=== PATIENT | female | born 1950 | race Hispanic/Latino ===

== ENCOUNTER 2024-09-04 17:40 | Emergency (ER) | payer OTHER, SELFPAY ==
[2024-09-04 17:49] VITALS: BP 170/80
[2024-09-04 18:26] LABS: Hemoglobin 13.4 g/dL (12.0-16.0); Mean Corp Hgb Conc. 33.5 g/dL (33.0-37.0); Mean Corpuscular Hgb 30.6 pg (27.0-31.0); Mean Corpuscular Volume 91.3 fL (81.0-99.0); Mean Platelet Volume 10.6 fL (7.4-10.4); Platelet Count 218 10^3/uL (130-400); Red Blood Cell Count 4.38 10^6/uL (4.20-5.40); Red Cell Dist. Width 13.6 % (11.5-14.5); White Blood Cell Count 6.3 10^3/uL (4.8-10.8)
[2024-09-04 18:39] LABS: ALT (SGPT) 15 U/L (0-35); AST (SGOT) 32 U/L (14-36); Albumin 4.4 g/dl (3.5-5.0); Alkaline Phosphatase 82 U/L (38-126); Blood Urea Nitrogen 28 mg/dl (7-17); Calcium 9.2 mg/dl (8.4-10.2); Carbon Dioxide 30 mmol/L (22-30); Chloride 100 mmol/L (98-107); Glucose 97 mg/dl (70-99); Potassium 4.3 mmol/L (3.5-5.1); Sodium 138 mmol/L (135-145); Total Bilirubin 0.3 mg/dl (0.2-1.3); Total Protein 7.7 g/dl (6.3-8.2); eGFR 59.49
[2024-09-04 18:48] LABS: % Basophils 0.5 % (0-2); % Eosinophils 0.5 % (0-6); % Immature Granulocytes 0.2 % (0-0.5); % Lymphocytes 57.8 % (20.5-51.1); % Monocytes 8.9 % (1.7-9.3); % Neutrophils 32.1 % (42.2-75.2); Absolute Lymphocytes 3.7 10^3/uL (1.2-3.4); Absolute Monocytes 0.6 10^3/uL (0.1-0.6); Nucleated Red Blood Cells % 0 %; Troponin I < 0.012 ng/ml
[2024-09-04 20:16] VITALS: BP 158/65
[2024-09-04 20:52] VITALS: BMI 26.1
[2024-09-04 21:00] VITALS: BP 147/62
[2024-09-04 21:30] LABS: D-Dimer 0.45 ug/mlFEU (0.00-0.50)
--- NOTE | 2024-09-04 21:43 | ED.GENMED ---
History of Present Illness
<Ashwini Thakur PA-C - Last Filed: 09/05/24 00:41>
General
Chief Complaint: Chest Pain
Source: patient and family (Patient's daughter at bedside)
Exam Limitations: none
Time Seen by Provider: 09/04/24 20:12
Nursing documentation reviewed up to this point in time: agreed with
History of Present Illness
History of Present Illness:
Patient is a 74-year-old female with history hypertension, GERD presenting to the emergency department with daughter for evaluation of chest pain. Patient's daughter is translating for patient. Patient reports intermittent discomfort in her left
chest over the past month although becoming more constant and worse this week. There is some radiation of pain into her arms and upper back. Patient denies any true exertional or pleuritic component to pain. No shortness of breath. No
diaphoresis, nausea/vomiting, numbness/tingling in extremities. No tearing back pain. Patient denies any fever, chills, cough, or other URI symptoms
Patient's daughter did notice a mild tremor in her left arm today which is new.
Patient has recently been following with GI for suspected GERD.
No lower extremity edema or pain. No recent travel or recent surgeries. No history of personal or family history of blood clots or clotting disorders
Review of Systems
<Ashwini Thakur PA-C - Last Filed: 09/05/24 00:41>
Review of Systems
Allergies reviewed?: Yes
All Other Systems: ROS reviewed and negative except as documented in HPI and ROS
Phy Exam
<Ashwini Thakur PA-C - Last Filed: 09/05/24 00:41>
Physical Exam
Physical Exam:
Vitals: Patient's vital signs are stable. Afebrile
General: Patient is well appearing, no acute distress. Nontoxic appearing
Skin: Warm and dry, no rashes or lesions
Head: Normocephalic, atraumatic
Eyes: Sclera nonicteric. EOMs intact. No nystagmus.
Throat: Protecting airway
Neck: Normal ROM, no cervical spine tenderness, no meningismus
Cardiac: Regular rate and rhythm, no murmurs. No reproducible chest wall tenderness. Palpable and equal distal pulse in bilateral upper and lower extremities
Pulm: Normal respiratory effort, no wheezes, rales, rhonchi heard on exam. O2 saturation 99 on room air
Abdomen: Abdomen soft. No abdominal tenderness.
Extremities: No evidence of cyanosis or edema. Bilateral upper and lower extremities atraumatic and nontender with full range of motion
Neuro: AAOx3. CN II-XII intact. No focal neurologic deficits. Sensation fully intact. No tremor on exam.
Psychiatric: Normal affect.
Scores
<Ashwini Thakur PA-C - Last Filed: 09/05/24 00:41>
Heart Score for Chest Pain Patients
STEMI patient?: No
History: Slightly or Non-Suspicious
ECG: Normal
Age: >/= 65 years
Risk Factors: 1 or 2 Risk Factors
Troponin: </= Normal Limit
Heart Score for Chest Pain Patients: 3
Heart Score Risk: 2.5% MACE over next 6 weeks
Course
<Ashwini Thakur PA-C - Last Filed: 09/05/24 00:41>
Orders/Labs/Results
Orders:
Orders
09/04/24 17:41
EKG [Electrocardiogram (*1)] Urgent
Reason for Study: Chest Pain
EKG- Treatment ONCE
09/04/24 18:08
CBC/With Diff [Complete Blood Count/With Diff] Urgent
Comprehensive Metabolic Panel Urgent
Troponin I Urgent
09/04/24 21:00
Electrocardiogram (*1) Urgent
Reason for Study: Chest Pain
EKG- Treatment ONCE
09/04/24 21:10
D-Dimer Urgent
Troponin I Urgent
09/04/24 21:57
CR Chest - 2 Views Urgent
Comment:
Reason For Exam: left sided chest pain
Abnormal Lab Results
09/04/24
18:08
MPV 10.6 H fL
(7.4-10.4)
Absolute Lymphs (auto) 3.7 H 10^3/uL
(1.2-3.4)
Neutrophils % 32.1 L %
(42.2-75.2)
Lymphocytes % 57.8 H %
(20.5-51.1)
BUN 28 H mg/dl
(7-17)
09/04/24 18:08
09/04/24 18:08
Vital Signs
Initial and Last Documented VS:
Initial Vital Signs
Temp Pulse Resp BP Pulse Ox
98.3 F 58 20 170/80 99
09/04/24 17:49 09/04/24 17:49 09/04/24 17:49 09/04/24 17:49 09/04/24 17:49
Last Documented Vital Signs
Temp Pulse Resp BP Pulse Ox
98.3 F 57 13 132/64 97
09/04/24 17:49 09/04/24 23:45 09/04/24 23:45 09/04/24 23:05 09/05/24 00:01
<Mc Cleveland, DO - Last Filed: 09/04/24 23:24>
Orders/Labs/Results
Orders:
Orders
09/04/24 17:41
EKG [Electrocardiogram (*1)] Urgent
Reason for Study: Chest Pain
EKG- Treatment ONCE
09/04/24 18:08
CBC/With Diff [Complete Blood Count/With Diff] Urgent
Comprehensive Metabolic Panel Urgent
Troponin I Urgent
09/04/24 21:00
Electrocardiogram (*1) Urgent
Reason for Study: Chest Pain
EKG- Treatment ONCE
09/04/24 21:10
D-Dimer Urgent
Troponin I Urgent
09/04/24 21:57
CR Chest - 2 Views Urgent
Comment:
Reason For Exam: left sided chest pain
Abnormal Lab Results
09/04/24
18:08
MPV 10.6 H fL
(7.4-10.4)
Absolute Lymphs (auto) 3.7 H 10^3/uL
(1.2-3.4)
Neutrophils % 32.1 L %
(42.2-75.2)
Lymphocytes % 57.8 H %
(20.5-51.1)
BUN 28 H mg/dl
(7-17)
09/04/24 18:08
09/04/24 18:08
Vital Signs
Initial and Last Documented VS:
Initial Vital Signs
Temp Pulse Resp BP Pulse Ox
98.3 F 58 20 170/80 99
09/04/24 17:49 09/04/24 17:49 09/04/24 17:49 09/04/24 17:49 09/04/24 17:49
Last Documented Vital Signs
Temp Pulse Resp BP Pulse Ox
98.3 F 57 13 132/64 97
09/04/24 17:49 09/04/24 23:45 09/04/24 23:45 09/04/24 23:05 09/05/24 00:01
<Ashwini Thakur PA-C - Last Filed: 09/05/24 00:41>
MDM/Problems Addressed
Differential Diagnosis Includes:
Not limited to: Pleurisy, classic chest, GERD, pneumonia, ACS, PE, etc.
MDM/Problems Addressed:
74-year-old female with constant left-sided chest pain with radiation to arms, back for the past week. No true exertional or pleuritic component. No nausea, diaphoresis, lightheadedness, shortness of breath. No lower extremity edema. No PE risk
factors. Mildly hypertensive, otherwise stable vitals signs. Patient afebrile. Physical exam as above. Patient very well-appearing, no apparent distress. Heart regular rate and rhythm. Lungs clear bilaterally. No lower extremity edema. Basic
labs initiated in triage without any clinically significant abnormalities. Initial troponin undetectable. EKG shows sinus bradycardia without acute ischemic changes. Given symptoms been ongoing for the past week and somewhat intermittent over the
past month�low suspicion for acute cardiac emergency. Will repeat troponin and check D-dimer. Will closely monitor and reassess
Update: Repeat troponin undetectable. Fortunately D-dimer is negative. A chest x-ray was obtained without any acute abnormalities. Into reassess patient at bedside who remains very well-appearing, no apparent distress. Ultimately patient with
atypical chest pain over the past week/month. Low suspicion for acute cardio/pulmonary emergent process. Possibly related to GERD/muscle strain. Feel patient stable for discharge with close primary care follow-up. Return precautions discussed.
Case discussed with attending physician
Chronic conditions affecting care:
Hypertension, GERD
Acute Exacerbation and/or Progression of Chronic Illness:
Acutely hypertensive
<Ashwini Thakur PA-C - Last Filed: 09/05/24 00:41>
*Radiology
Radiology exam reviewed: preliminary read by ED provider (Chest x-ray reviewed by mt-no acute abnormalities) and radiology read reviewed
*Pulse Oximetry
Patient hypoxic: no
*EKG
Interpreted by ED Provider?: Yes
EKG Intrepretation Date: 09/04/24
Interpretation: normal
Comparison EKG: no comparison EKG present
Heart Rate: 58
Rate: bradycardiac
Rhythm: sinus and sinus arrhythmia
[place]: normal axis
Interval: normal QT interval
QRS Pattern: normal QRS
Ischemia: no ischemia
*Vending Machine Repairer Interpretation
Rate: normal
Interpretation: normal
Heart Rate: 56
Rhythm: sinus
*Critical Care Note
Total Time (30-74mins, 75-104mins- exclusive of procedures): Not Applicable
<Ashwini Thakur PA-C - Last Filed: 09/05/24 00:41>
Patient Management
Escalation/DeEscalation of care consider admission/obs:
Admit not indicated
ED Attending Note
<Ashwini Thakur PA-C - Last Filed: 09/05/24 00:41>
-
Portions of this chart may have been created with voice recognition software.� Occasional wrong word or��sound alike� substitutions may have occurred due to the inherent limitations of voice recognition software.
<Mc Cleveland, - Last Filed: 09/04/24 23:24>
ED Attending Note
I performed the substantive portion of visit, reviewed & personally made and approve the management plan that is documented in note by myself or RAÚL.: Yes
Discharge Plan
Departure
Patient Disposition: Home (Routine Discharge)
Date of Disposition: 09/04/24
Time of Disposition: 23:57
Patient with high blood pressure during this ER visit?: Yes
Condition: Good
Covid-19: Not Applicable
Discharge Problem:
Chest pain
Instructions: Chest pain - Discharge instructions, BLOOD PRESSURE
Referrals:
Arnoldo Lujan MD [Family Provider] -
Saul Gallagher MD [Active] - Call in 1-3 days for appt
Activity Restrictions/Additional Instructions:
Return to the emergency department with any worsening chest pain, shortness of breath/difficulty breathing, severe back pain, lightheadedness/dizziness, worsening in current symptoms, or any other concern
-As discussed�your chest x-ray showed no acute abnormalities today. Your lab work did not show any significant abnormalities.
-You can continue to take Motrin/Tylenol as needed for discomfort.
-Follow-up with cardiology for further evaluation/management as needed. A ob/gyn contact information has been provided for you above.
-Continue to follow with GI for GERD.
Monitor your symptoms closely return to the emergency department with any acute worsening/new symptoms or any other concerns
Interventions
Interventions:
*Risk Screen - Suicide Last Done: 09/05/24 00:10
*General Assessment Last Done: 09/04/24 17:49
*Neglect/Abuse Screening Last Done: 09/04/24 20:53
ED- Fall Risk Assessment Last Done: 09/04/24 20:54
*ED COVID-19 Vaccine History Last Done: 09/04/24 20:53
*Nursing Disposition Last Done: 09/05/24 00:10
ED- Cardiac Assessment Last Done: 09/04/24 20:54
Discharge Date and Time
Discharge Date/Time: 09/05/24 00:12
Print Language: CHADIAN
[2024-09-04 22:00] VITALS: BP 140/56
[2024-09-04 22:05] LABS: Troponin I < 0.012 ng/ml
[2024-09-04 23:05] VITALS: BP 132/64
== END 2024-09-05 00:12 | disposition home or self-care (01) ==
LOC: EMR 17:40
PROVIDERS: Physician Assistant; Student in an Organized Health Care Education/Training Program; EMERGENCY PHYSICIAN Emergency Medicine; FAMILY PHYSICIAN Internal Medicine
DX: R07.89 Other chest pain (principal); I10 Essential (primary) hypertension; K21.9 Gastro-esophageal reflux disease without esophagitis
CPT/HCPCS: 99283; 71046; 80053; 84484; 85025; 85379; 93005

== ENCOUNTER 2025-05-15 14:45 | Emergency (ER) | payer OTHER, SELFPAY ==
[2025-05-15 14:58] VITALS: BP 172/66
[2025-05-15 15:16] LABS: Hematocrit 37.6 % (37.0-47.0); Hemoglobin 12.6 g/dL (12.0-16.0); Mean Corp Hgb Conc. 33.5 g/dL (33.0-37.0); Mean Corpuscular Volume 90.6 fL (81.0-99.0); Nucleated Red Blood Cells % 0 %; Platelet Count 230 10^3/uL (130-400); Red Cell Dist. Width 13.2 % (11.5-14.5)
[2025-05-15 15:50] LABS: ALT (SGPT) 19 U/L (0-35); AST (SGOT) 29 U/L (14-36); Albumin 4.1 g/dl (3.5-5.0); Alkaline Phosphatase 79 U/L (38-126); Blood Urea Nitrogen 29 mg/dl (7-17); Calcium 9.3 mg/dl (8.4-10.2); Carbon Dioxide 32 mmol/L (22-30); Chloride 103 mmol/L (98-107); Glucose 103 mg/dl (70-99); Potassium 4.6 mmol/L (3.5-5.1); Sodium 140 mmol/L (135-145); Total Protein 7.5 g/dl (6.3-8.2); eGFR 53.06
--- NOTE | 2025-05-15 17:19 | ED.GENMED ---
History of Present Illness
General
Chief Complaint: Musculo-Skeletal Complaint
Source: patient and family
Exam Limitations: none
Time Seen by Provider: 05/15/25 16:57
Nursing documentation reviewed up to this point in time: agreed with except (Triage note mentions urinary symptoms but this was entered in error apparently)
History of Present Illness
History of Present Illness:
74-year-old female with a past medical history of hypertension, hyperlipidemia, mild dementia, seizures who presents to the emergency room with her daughter for evaluation of pain in the feet. Patient has reportedly had burning pain on the soles of
the feet bilaterally for about 6 months. She has been seen by her primary care physician for this issue, has been on gabapentin but does not feel that this is helping. Today the burning pain was so severe that she was having trouble walking in the
park with her daughter and ultimately they brought her to the ER to be evaluated. She denies any shooting pains down the legs, pain seems to be localized to the soles of the feet. She does have some chronic back pain after a fall few months ago
but no acute changes there. She has not had any weakness in the legs. No numbness or weakness in the arms. Triage note mentions urinary symptoms�this was apparently entered in error, patient has not had any urinary issues
Review of Systems
Review of Systems
All Other Systems: ROS reviewed and negative except as documented in HPI and ROS
Constitutional: Denies fever
Respiratory: Denies trouble breathing
Cardiac: Denies chest pain
ABD/GI: Denies abdominal pain
: Denies dysuria, frequency or flank pain
Musculoskeletal: Reports back pain (Chronic and unchanged) and other (Bilateral foot pain); Denies neck pain
Neurological: Denies headache, weakness or numbness
Phy Exam
Physical Exam
Physical Exam:
General: Awake, alert, oriented x3; no acute distress
Head: Normocephalic, atraumatic
Eyes: Conjunctiva normal, EOMI, pupils equal round and reactive to light bilaterally
Throat: Airway intact, handling secretions
Neck: Trachea midline
Lungs: Breathing comfortably no distress
Heart: Regular rate
Abd: Soft, non distended, nontender
Back: No midline thoracic or lumbar tenderness, mild tenderness left paraspinal musculature
Neuro: Cranial nerves intact, speech fluid, motor intact proximally and distally in the upper and lower extremities; sensory exam is objectively intact in the legs however she does have some subjective diminished sensation on the soles of the feet
Skin: No rash noted
Extremities: No edema in extremities, equal pulses in all extremities�she has palpable popliteal, DP and PT pulses in the legs bilaterally and she has brisk capillary refill
Scores
Heart Failure Risk
Heart Failure Risk Score: Not Applicable
Heart Score for Chest Pain Patients
STEMI patient?: Not applicable
Withdrawal Assessment of Alcohol
Withdrawal Assessment Completed?: Not applicable
Course
Orders/Labs/Results
Orders:
Orders
05/15/25 15:10
CBC/With Diff [Complete Blood Count/With Diff] Urgent
CMP [Comprehensive Metabolic Panel] Urgent
05/15/25 17:14
B12 [Vitamin B12] Urgent
Folate Urgent
TSH Reflex To Free T4 Urgent
Vitamin D, 25-OH Urgent
05/15/25 17:20
Urinalysis Reflex To Culture Urgent
Abnormal Lab Results
05/15/25
15:10
RBC 4.15 L 10^6/uL
(4.20-5.40)
MPV 10.6 H fL
(7.4-10.4)
Carbon Dioxide 32 H mmol/L
(22-30)
BUN 29 H mg/dl
(7-17)
Creatinine 1.1 H mg/dL
(0.6-1.0)
Glucose 103 H mg/dl
(70-99)
05/15/25 15:10
05/15/25 15:10
Vital Signs
Initial and Last Documented VS:
Initial Vital Signs
Temp Pulse Resp BP Pulse Ox
36.6 C 57 14 172/66 100
05/15/25 14:58 05/15/25 14:58 05/15/25 14:58 05/15/25 14:58 05/15/25 14:58
Last Documented Vital Signs
Temp Pulse Resp BP Pulse Ox
36.6 C 57 14 172 100
05/15/25 14:58 05/15/25 14:58 05/15/25 14:58 05/15/25 14:58 05/15/25 17:20
MDM/Problems Addressed
Differential Diagnosis Includes:
Patient presents with neuropathic pain in the feet�differential diagnosis would be include diabetic neuropathy, drug/toxin induced, electrolyte abnormality, autoimmune, idiopathic/age-related
MDM/Problems Addressed:
74-year-old female presents for evaluation of burning pain on the soles of the feet that has been going on for 6 months but she feels generally worsening. She is on gabapentin but this is not helping. Vitals and exam as above. Labs were sent off
including a CBC and a CMP�CMP shows marginal renal insufficiency with a creatinine of 1.1 from baseline of 1.0. No other clinically significant abnormalities. Added thyroid studies and B12/folate. Will discuss with neurology for recommendations
for short-term management of her neuropathy; she will need definitive follow-up outpatient for this chronic issue. No indication for further emergent workup at this time.
Discussed with neurology who recommended increasing dose of gabapentin�currently patient takes 300 mg 3 times daily. Recommended increasing to 300 mg morning and afternoon with 600 mg dose in the evening. Can then increase dose after few days with
a goal to titrate towards 600 mg 3 times daily.
Acute Exacerbation and/or Progression of Chronic Illness: HTN
*Pulse Oximetry
SaO2: 100
Oxygen Mode of Delivery: Room air
Patient hypoxic: no (100%)
*Critical Care Note
Total Time (30-74mins, 75-104mins- exclusive of procedures): Not Applicable
Data Reviewed
Source: patient and family
Patient Management
Discussion with other providers: Head Machine Feeder (Discussed with neurologist)
ED Attending Note
-
Portions of this chart may have been created with voice recognition software.� Occasional wrong word or��sound alike� substitutions may have occurred due to the inherent limitations of voice recognition software.
Discharge Plan
Departure
Patient with high blood pressure during this ER visit?: Yes
Discharge Problem:
Bilateral foot pain
Instructions: Neuropathic pain
Prescriptions:
New
gabapentin 600 mg tablet
600 mg PO TID 30 Days Qty: 90 0RF
Referrals:
Windy Lujan MD [Non-Admitting Privileges, Neurology] - Call in 1-3 days for appt
Referral Note: Neurologist
Arnoldo Lujan MD [Family Provider, Internal Medicine] - Follow up in 5-7 days
Activity Restrictions/Additional Instructions:
You should increase your dose of gabapentin but it needs to be increased slowly to prevent making you too sleepy. You should start by taking your normal 300 mg dose morning and afternoon and increased dose of 600 mg in the evening. You should do
this for the next 5 days.
After 5 days at this increased dose you should start taking 300 mg in the morning and 600 mg in the afternoon and evening. Do this for another 5 days.
Finally, you can increase your dose to 600 mg 3 times daily.
You should follow-up with a neurologist for further workup and evaluation of your symptoms. You should also see your primary doctor after your emergency room visit today. You should call tomorrow to make these appointments as soon as possible.
Thank you for visiting the Emergency Department at [facility].
1. Please schedule a follow up appointment as directed. Call first thing tomorrow morning to make an appointment.
2. If indicated, please take your medications as instructed and indicated on discharge paperwork.
3. If any of your symptoms do not improve, or persist, or become more severe within 6-12 hours, please return to the emergency department for further care.
4. Please return to the emergency department if you develop a headache, neck pain/stiffness, fever greater than 100.4F, chest pain, shortness of breath, persistent nausea, vomiting, slurred speech, difficulty walking, numbness/tingling, weakness,
signs of infection or any other symptoms that are worrisome to you.
Please call [phone] if you have any questions.
Interventions
Interventions:
*Risk Screen - Suicide Last Done: 05/15/25 14:58
*General Assessment Last Done: 05/15/25 14:58
*Neglect/Abuse Screening Last Done: 05/15/25 14:58
*ED COVID-19 Vaccine History Last Done: 05/15/25 14:58
*ED Influenza Vaccine History Last Done: 05/15/25 14:58
Discharge Date and Time
Print Language: BRAZILIAN
[2025-05-15 18:53] LABS: Vitamin D, 25-OH*** 68.0 ng/mL (30-80)
[2025-05-15 19:42] LABS: Folate 16.0 ng/ml (2.76-20); Vitamin B12 > 1000 pg/ml (239-931)
== END 2025-05-15 19:14 | disposition home or self-care (01) ==
LOC: EMR 14:45
PROVIDERS: Emergency Medicine; EMERGENCY PHYSICIAN Emergency Medicine; FAMILY PHYSICIAN Internal Medicine
DX: M79.672 Pain in left foot (principal); M79.671 Pain in right foot; E78.5 Hyperlipidemia, unspecified; I10 Essential (primary) hypertension; F03.A0 Unspecified dementia, mild, without behavioral disturbance, psychotic disturbance, mood disturbance, and anxiety; G89.29 Other chronic pain
CPT/HCPCS: 99283; 80053; 82306; 82607; 82746; 84443; 85025